=== PATIENT | female | born 1945 | race Hispanic/Latino ===

== ENCOUNTER 2016-12-08 07:16 | Day surgery (SDC) | payer MEDICARE, OTHER ==
[2016-12-01 08:31] VITALS: BMI 27.8
[2016-12-08] MEDS ORDERED: Propofol 10 mg/ml Inj (20 ML) ONE (09:03)
[2016-12-08] MEDS ORDERED: Lidocaine 1% Inj (20ml) ONE (09:09)
[2016-12-08] MEDS ORDERED: Lactated Ringer's 1,000 ML IV SCH (09:48)
[2016-12-08 10:18] VITALS: RESP 16
[2016-12-08 10:46] VITALS: BP 144/92; PULSE 75; TEMP 97.9; O2SAT 98
== END 2016-12-08 10:51 | disposition home or self-care (01) ==
LOC: ENDO 07:16
PROVIDERS: ATTEND Internal Medicine Gastroenterology
DX: K57.30 Diverticulosis of large intestine without perforation or abscess without bleeding (principal); D12.3 Benign neoplasm of transverse colon; K64.8 Other hemorrhoids
CPT/HCPCS: 45380; 45385; 88305; J2704; J7040; J7120